=== PATIENT | female | born 1980 | race Caucasian/White ===

== ENCOUNTER 2016-10-17 20:11 | Observation (INO) | payer SELFPAY ==
[2016-10-17 20:35] VITALS: BMI 24.3
[2016-10-17] MEDS ORDERED: NS 1000 ML 0 ML ONE (21:04)
--- NOTE | 2016-10-17 21:05 | DR.GENAD ---
HPI - PCP Primary Care Physician: nfd - Complaint/Symptoms Chief Complaint Doctors Comments: Patient states she has been having a fever with stomach and back pain for the past 12 hours. Family states patient passed out at home while she was getting out the truck and walking to the door she fell backwards on the floor and had episode of stiffening of her body with hands clinched and shaking all over for a few seconds without urine or fecal incontinencel Family members states patient asked what happened afterwards and they went to sleep. family states patient temp was 105.2 at home at the time of the seizure. SHe is complaining of a headache and being dizzy but denies chest pain, nasuea or vomiting. She is complaining of occipital pain. She deies a history or seizures. Chief Complaint:: fever of 105.5 today abdominal pain all quadrants, and back pain patient stated " my fiance and daughter said i fell out and had a seizure when my fever was high, but i can't remember." Self Treatment fo Chief Complaint: 2 ibuprofen about an hour ago - Nurses notes reviewed Nurses Notes Review: Yes - Source History Provided: Patient - Mode of Arrival Mode of Arrival: Ambulatory - Timing Onset of Chief Complaint: 10/16/16 Came on: Suddenly - Duration Duration: Intermittent How lon Duration: Hours - Location Location: occipital headache - Severity Severity: Moderate - Modifying Factors Worsens:: nothing Improves:: nothing PMH - PMH Past Medical History: No Past Surgical History: No Surgical History: [employer] Surgery - Family History History of Family Medical Conditions: Yes Family Medical History: Diabetes Mellitus, Cancer, [place], Hypertension Family Medical History Comment: cva, seizures - Social History Does patient currently use any type of tobacco product: Yes Have you used tobacco products in the last 12 months: Yes Type of Tobacco Use: Cigarettes How many years tobacco product used: 21 Does any household member use tobacco: Yes Alcohol Use: None Do you use any recreational Drugs:: No Lives With: Family, Significant Other - infectious screening In the last 2 months have you had wt loss of >10#?: NO Have you had fever, night sweats or hemotysis?: No Have you traveled outside the country in the last 6 months?: No Isolation: Standard ROS - Review of Systems Constitutional: No Symptoms Reported, Fever, Weakness. negative: See HPI, Chills, Diaphoresis, Malaise, Irritable, Fatigue, Loss of Appetite, Other Eyes: No Symptoms Reported ENTM: No Symptoms Reported, Nose Discharge, Nose Congestion. negative: See HPI , Ear Pain, Ear Discharge, Pulling on Ears, Hearing Loss, Nose Pain, Epistaxis, Mouth Pain, Mouth Swelling, Loose Teeth, Drooling, Throat Pain, Throat Swelling , Ear Foreign Body Respiratoy: No Symptoms Reported. negative: See HPI, Productive Cough, Non- Productive Cough, Moist Cough, Dry Cough, Hacking Cough, Barking Cough, Brassy Cough, Orthopnea, Short of Breath, Stridor, Wheezing, Hemoptysis, Other Cardiovascular: No Symptoms Reported. negative: See HPI, Chest Pain, Edema, Palpitations, Syncope, Cyanosis, Skin Mottling, Other Gastrointestinal/Abdominal: No Symptoms Reported, Abdominal Pain. negative: See HPI, Constipation, Diarrhea, Nausea, Vomiting, Food Intolerance, Other Genitourinary: No Symptoms Reported. negative: See HPI, Discharge, Dysuria, Frequency, Hematuria, Pain, Bleeding, Other Neurological: No Symptoms Reported, Headache, Weakness, Dizziness. negative: See HPI, Anxiety, Depressed, Emotional Problems, Numbness, Paresthesia, Pre- existing Deficit, Seizure, Tingling, Tremors, Problems Walking, Speech Problem, Other Musculoskeletal: No Symptoms Reported Integumentary: No Symptoms Reported Hematologic/Lymphatic: No Symptoms Reported. negative: See HPI, Anemia, Blood Clots, Easy Bleeding, Easy Bruising, Swollen Glands, Lymphadenopathy, Other Endocrine: No Symptoms Reported. negative: See HPI, Excessive Sweating, Flushing, Intolerance to Cold, Intolerance to Heat, Increased Hunger, Increased Thirst, Increased Urine, Unexplained Weight Gain, Unexplained Weight Loss, Failure to Thrive, Decreased Appetite, Other Psychiatric: No Symptoms Reported. negative: See HPI, Anxiety, Depression, Hallucinations, Excessive crying, Suicidal, Other PE - Vital Signs Vitals: Temperature 99.0 F Pulse Rate [Standing] 91 Pulse Rate [Sitting] 70 Pulse Rate [Lying] 69 Pulse Rate 75 Respiratory Rate 16 Blood Pressure [Standing] 114/58 Blood Pressure [Sitting] 113/57 Blood Pressure [Lying] 117/55 Blood Pressure 113/63 O2 Sat by Pulse Oximetry 98 - General Limitations: No Limitations General Appearance: Alert, In No Apparent Distress - Head Head Exam: Atraumatic, Normocephalic - Eyes Eye exam: Normal Appearance, PERRL, EOMI. negative: Scleral Icterus, Conjunctival Injection, Nystagmus, Miosis, Mydrasis, Periorbital Swelling, Periorbital Tenderness, Other - ENT ENT Exam: Normal Exam, Normal Oropharynx, Normal External Ear Exam, Mucous Membranes Moist, TM's Normal Bilaterally External Ear Exam: Normal External Inspection TM/Canal Exam: Bilateral Normal Nose Exam: Normal Nose Exam Mouth Exam: Normal Inspection Throat Exam: Normal Inspection. negative: Tonsillar Erythema, Tonsillomegaly, Tonsillar Exudate, R Peritonsillar Mass, L Peritonsillar Mass, Muffled Voice, Other - Neck Neck Exam: Normal Inspection, Full ROM, Trachea Midline. negative: Tenderness, Meningismus, Lymphadenopathy, Thyromegaly, Other - Chest Chest Inspection: Normal Inspection, Symmetric Chest Wall Rise - Respiratory Respiratory Exam: Normal Lung Sounds Bilat Respiratory Exam: Bilateral Clear to Auscultation - Cardiovascular Cardiovascular Exam: Regular Rate, Normal Rhythm, Normal Heart Sounds. negative : Bradycardia, Tachycardia, Irregular Rhythm, Systolic Murmur, Diastolic Murmur , Rubs, Gallop, Clicks, JVD, +S1, +S2, +S3, +S4, Other - Abdominal Exam Abdominal Exam: Normal Inspection, Normal Bowel Sounds, Soft, Tenderness (RUQ, RLQ, epigastric and suprpubic pain) Abdominal Tenderness: RUQ, RLQ, Epigastrium, Suprapubic - Extremities Extremities Exam: Normal Inspection, Full ROM, Normal Capillary Refill. negative: Tenderness, Edema, Joint Swelling, Calf Tenderness, Other - Back Back Exam: Normal Inspection, Full ROM - Neurologic Neurological Exam: Alert, Oriented X3, CN II-XII Intact, Normal Gait - Psychiatric Psychiatric Exam: Normal Affect, Normal Mood. negative: Depressed, Agitated, Anxious, Flat Affect, Manic, Homicidal Ideation, Suicidal Ideation, Other - Skin Skin Exam: Warm, Dry, Intact, Normal Color Course - Reevaluation 1st: Improved - Consultation Called: 01:10 Call Returned: 01:10 (Dr. Shearer to admit) - Education/Counseling Education/Counseling: Patient, Family Educated On: Treatment, Diagnosis, Prognosis, Needs for Follow Up ROR - Labs Reviewed Laboratory Results Reviewed?: Yes (all labs and x-ray results reviewed and discussed with patient.) Result Diagrams: 10/17/16 21:39 10/17/16 21:39 Laboratory: WBC 16.9 X10^3/uL (3.6-10.0) H 10/17/16 21:39 RBC 4.67 X10^6/uL (3.5-5.4) 10/17/16 21:39 Hgb 11.2 g/dL (12.0-16.0) L 10/17/16 21:39 Hct 34.7 % (36.0-47.0) L 10/17/16 21:39 MCV 74.3 fL (80.0-100.0) L 10/17/16 21:39 MCH 24.0 pg (27.0-34.0) L 10/17/16 21:39 MCHC 32.3 g/dL (33.0-35.0) L 10/17/16 21:39 RDW 17.3 % (11.6-16.5) H 10/17/16 21:39 Plt Count 257 X10^3/uL (150.0-450.0) 10/17/16 21:39 Plt Count Comment Adequate (ADEQUATE) 10/17/16 21:39 MPV 7.8 fL (7.4-11.0) 10/17/16 21:39 Neut % 85.2 % (42.0-75.0) H 10/17/16 21:39 Lymph % 8.2 % (21.0-51.0) L 10/17/16 21:39 [place] % 6.5 % (0.0-13.0) 10/17/16 21:39 Eos % 0.0 % (0.9-2.9) L 10/17/16 21:39 Baso % 0.1 % (0.2-1.0) L 10/17/16 21:39 Neut # 14.4 x10^3/uL (2.2-4.8) H 10/17/16 21:39 Lymph # 1.4 X10^3/uL (1.3-2.9) 10/17/16 21:39 [place] # 1.1 x10^3/uL (0.3-0.8) H 10/17/16 21:39 Eos # 0.0 x10^3/uL (0.0-0.2) 10/17/16 21:39 Baso # 0.0 X10^3/uL (0.0-0.1) 10/17/16 21:39 Absolute Nucleated RBC 0.0 /100WBC 10/17/16 21:39 Plt Morphology Comment Normal (NORMAL) 10/17/16 21:39 RBC Morphology Abnormal (NORMAL) A 10/17/16 21:39 Hypochromasia Slight A 10/17/16 21:39 Microcytosis Slight A 10/17/16 21:39 INR Target Range - 10/17/16 21:39 INR 1.10 (0.8-1.3) 10/17/16 21:39 PTT 30.8 SECONDS (22.9-36.5) 10/17/16 21:39 PTT Comment - 10/17/16 21:39 D-Dimer < 100 ng/mL (0-400) 10/17/16 21:39 Sodium 139 mmol/L (136-145) 10/17/16 21:39 Corrected Sodium TNP 10/17/16 21:39 Potassium 3.7 mmol/L (3.5-5.1) 10/17/16 21:39 Chloride 103 mmol/L (98-107) 10/17/16 21:39 Carbon Dioxide 29.2 mmol/L (21-32) 10/17/16 21:39 BUN 9 mg/dL (7-18) 10/17/16 21:39 Creatinine 0.84 mg/dL (0.55-1.02) 10/17/16 21:39 Est GFR (MDRD) Af Amer > 60 (>60) 10/17/16 21:39 Est GFR (MDRD) Non-Af > 60 (>60) 10/17/16 21:39 Glucose 88 mg/dL (65-99) 10/17/16 21:39 Calcium 8.2 mg/dL (8.5-10.1) L 10/17/16 21:39 Corrected Calcium TNP 10/17/16 21:39 Magnesium 1.9 mg/dL (1.7-2.9) 10/17/16 21:39 Total Bilirubin 0.80 mg/dL (0.2-1.0) 10/17/16 21:39 AST 35 Units/L (15-37) 10/17/16 21:39 ALT 46 Units/L (12-78) 10/17/16 21:39 Alkaline Phosphatase 62 Units/L (46-116) 10/17/16 21:39 Creatine Kinase 144 Units/L (26-192) 10/17/16 21:39 CK-MB (CK-2) < 1.0 ng/mL (0-4.0) 10/17/16 21:39 CK/CKMB % Calc 0.7 % (<4) 10/17/16 21:39 Troponin I < 0.02 ng/mL (0-1.5) 10/17/16 21:39 Total Protein 7.8 g/dL (6.4-8.2) 10/17/16 21:39 Albumin 3.6 g/dL (3.4-5.0) 10/17/16 21:39 Globulin 4.2 g/dL (2.5-4.5) 10/17/16 21:39 Albumin/Globulin Ratio 0.9 Ratio (1.1-2.1) L 10/17/16 21:39 Amylase 39 Units/L (25-115) 10/17/16 21:39 Lipase 95 Units/L (73-393) 10/17/16 21:39 Specimen Type Clean catch urine 10/17/16 22:42 Urine Color Yellow (YELLOW) 10/17/16 22:42 Urine Appearance Hazy (CLEAR) 10/17/16 22:42 Urine pH 6.0 (5.0 - 8.0) 10/17/16 22:42 Ur Specific [place] 1.010 (1.000-1.030) 10/17/16 22:42 Urine Protein 2+ (NEGATIVE) 10/17/16 22:42 Urine Glucose (UA) Negative (NEGATIVE) 10/17/16 22:42 Urine Ketones Negative (NEGATIVE) 10/17/16 22:42 Urine Occult Blood 1+ (NEGATIVE) 10/17/16 22:42 Urine Nitrite Negative (NEGATIVE) 10/17/16 22:42 Urine Bilirubin Negative (NEGATIVE) 10/17/16 22:42 Urine Urobilinogen Normal (NORMAL) 10/17/16 22:42 Ur Leukocyte Esterase 2+ (NEGATIVE) 10/17/16 22:42 Urine RBC 1-4 /HPF (NEGATIVE) 10/17/16 22:42 Urine WBC 20-30 /HPF (NEGATIVE) 10/17/16 22:42 Ur Squamous Epith Cells Moderate /HPF (NEGATIVE) 10/17/16 22:42 Urine Bacteria Trace /HPF (NEGATIVE) 10/17/16 22:42 Ur Culture Indicated? Yes/culture set up 10/17/16 22:42 Urine Opiates Screen Negative (NEG=<300) 10/17/16 22:42 Urine Methadone Screen Negative (NEG=<300) 10/17/16 22:42 Ur Barbiturates Screen Negative (NEG=<200) 10/17/16 22:42 Ur Phencyclidine Scrn Negative (NEG=<25) 10/17/16 22:42 Ur Amphetamines Screen Negative (NEG=<1000) 10/17/16 22:42 U Benzodiazepines Scrn Negative (NEG=<200) 10/17/16 22:42 Urine Cocaine Screen Negative (NEG=<300) 10/17/16 22:42 U Marijuana (THC) Screen Negative (NEG=<50) 10/17/16 22:42 - XRAY XRAY Interpreted by: Radiologist (CT abdomen and pelvis: No acut einflammatory process in abdomen or pelvis) XRAY Findings: CT head: No acute intracranial process is identified. - Diagnosis Discharge Problem: Syncope and collapse, Urinary tract infection, Fever Altered mental status Qualifiers: Altered mental status type: transient alteration of awareness Qualified Code(s) : R40.4 - Transient alteration of awareness - Discharge Plan Disposition: ADMITTED INPATIENT Condition: Stable - Follow ups/Referrals Follow ups/Referrals: NFD,None [Primary Care Provider] - 3 days - Instructions
[2016-10-17] MEDS ORDERED: TORADOL 30 MG VIAL ONE (21:40)
[2016-10-17] MEDS ORDERED: ZOFRAN INJ 4 MG VIAL ONE (21:40)
--- NOTE | 2016-10-17 21:43 | CT ---
CT brain without contrast Indication: New onset seizure, occipital headache Comparison: None available Technique: Multiple axial images of the brain were obtained from the skull base to the vertex without administr ation of IV contrast. Coronal and sagittal images were also provided. Radiation dose reduction techniques were performed utilizing adjustment for MA/kVP based on patient body size. Findings: No acute intraparenchymal hemorrhage or mass can be identified. No extra-axial fluid collections ar e seen. No alteration in the attenuation of the brain parenchyma can be identified to suggest acute or subacute ischemic change. The ventricular system is symmetric and nondilated. The extracranial structures are grossly unremarkable. IMPRESSION: 1. No acute intracranial process is identified. Reported By:
--- NOTE | 2016-10-17 21:47 | CT ---
CT abdomen and pelvis without contrast Indication: Epigastric and suprapubic pain Comparison: 07/31/2016 Technique: Multiple axial images of the abdomen and pelvis were obtained from the lung bases to the pubic symph ysis without the administration of IV contrast. Coronal and sagittal images were also provided. Radiation dose reduction techniques were performed utilizing adjustment for MA/kVP based on patient body size. Findings: The visualized portions of the lung bases are unremarkable. There is pectus excavatum deformity of t he chest wall. The bony structures are grossly intact. Given the limitations of lack of IV contrast administration the liver, gallbladder, spleen, pancreas , and adrenal glands are unremarkable in their CT appearance. No evidence of stone within either kidney or ureter. No hydronephrosis is identified. No bowel wall thickening or bowel dilatation is present. The colon and rectum are unremarkable. Th e urinary bladder is grossly unremarkable. No discrete pelvic or adnexal mass identified. The append ix is normal. No mesenteric lymphadenopathy or stranding can be observed. No free fluid or free air is seen withi n the abdomen. IMPRESSION: 1. No acute inflammatory process within the abdomen or pelvis given the limitations of lack of IV o r oral contrast administration. Reported By:
[2016-10-17 21:57] LABS: BASOPHILS % (AUTO) 0.1 % (0.2-1.0); HEMATOCRIT 34.7 % (36.0-47.0); HEMOGLOBIN 11.2 g/dL (12.0-16.0); LYMPHOCYTES # (AUTO) 1.4 X10^3/uL (1.3-2.9); LYMPHOCYTES % (AUTO) 8.2 % (21.0-51.0); MEAN CORPUSCULAR HGB CONC 32.3 g/dL (33.0-35.0); MEAN CORPUSCULAR VOLUME 74.3 fL (80.0-100.0); MEAN PLATELET VOLUME 7.8 fL (7.4-11.0); MONOCYTES # (AUTO) 1.1 x10^3/uL (0.3-0.8); MONOCYTES % (AUTO) 6.5 % (0.0-13.0); NEUTROPHILS # (AUTO) 14.4 x10^3/uL (2.2-4.8); NEUTROPHILS % (AUTO) 85.2 % (42.0-75.0); PLATELET COUNT 257 X10^3/uL (150.0-450.0); RED BLOOD COUNT 4.67 X10^6/uL (3.5-5.4); RED CELL DISTRIBUTION WIDTH 17.3 % (11.6-16.5); WHITE BLOOD COUNT 16.9 X10^3/uL (3.6-10.0)
[2016-10-17 22:10] LABS: BLOOD UREA NITROGEN 9 mg/dL (7-18); CALCIUM 8.2 mg/dL (8.5-10.1); CARBON DIOXIDE 29.2 mmol/L (21-32); CHLORIDE 103 mmol/L (98-107); CREATININE 0.84 mg/dL (0.55-1.02); GLUCOSE 88 mg/dL (65-99); SODIUM 139 mmol/L (136-145); TROPONIN I < 0.02 ng/mL (0-1.5); eGFR BLACK RACES > 60 (>60); eGFR NON BLACK RACES > 60 (>60)
[2016-10-17 22:13] LABS: ALANINE AMINOTRANSFERASE 46 Units/L (12-78); ALBUMIN 3.6 g/dL (3.4-5.0); ALKALINE PHOSPHATASE 62 Units/L (46-116); AMYLASE 39 Units/L (25-115); ASPARTATE AMINO TRANSFERASE 35 Units/L (15-37); CKMB % 0.7 % (<4); CREATINE KINASE 144 Units/L (26-192); CREATINE KINASE MB < 1.0 ng/mL (0-4.0); LIPASE 95 Units/L (73-393); MAGNESIUM 1.9 mg/dL (1.7-2.9); TOTAL PROTEIN 7.8 g/dL (6.4-8.2)
[2016-10-17 22:14] LABS: HYPOCHROMASIA SLIGHT; MICROCYTOSIS SLIGHT; PLATELET MORPHOLOGY COMMENT NORMAL (NORMAL)
[2016-10-17 22:15] LABS: D DIMER < 100 ng/mL (0-400)
[2016-10-17 23:15] LABS: BILIRUBIN,URINE NEGATIVE (NEGATIVE); BLOOD/HEMOGLOBIN,URINE 1+ (NEGATIVE); GLUCOSE, URINE NEGATIVE (NEGATIVE); KETONES,URINE NEGATIVE (NEGATIVE); LEUKOCYTE ESTERASE ,URINE 2+ (NEGATIVE); NITRITES,URINE NEGATIVE (NEGATIVE); PROTEIN,URINE 2+ (NEGATIVE); UROBILINOGEN,URINE NORMAL (NORMAL)
[2016-10-17 23:32] LABS: APPEARANCE,URINE HAZY (CLEAR); COLOR,URINE YELLOW (YELLOW)
[2016-10-17 23:33] LABS: BACTERIA,URINE TRACE /HPF (NEGATIVE); SQUAMOUS EPITHELIAL CELL,UR MODERATE /HPF (NEGATIVE)
[2016-10-17] MEDS ORDERED: ROCEPHIN VIAL 1 GM 1 GM in NS 50 ML IV + SPIKE MINIBAG* 50 ML IV SCH (23:45)
[2016-10-17] MEDS ORDERED: NS 50 ML IV + SPIKE MINIBAG* 50 ML IV ONE (23:56)
[2016-10-17] MEDS ORDERED: ROCEPHIN VIAL 1 GM ONE (23:57)
[2016-10-18] MEDS ORDERED: NS 100 ML IV 100 ML IV ONE (00:04)
[2016-10-18] MEDS: NS 100 ML IV 100 ML IV SCH ×2 (00:08→06:32)
[2016-10-18] MEDS ORDERED: TORADOL 30 MG VIAL IVP PRN (01:17)
[2016-10-18] MEDS ORDERED: ZOFRAN INJ 4 MG VIAL IVP PRN (01:18)
[2016-10-18] MEDS: NS 1000 ML 1,000 ML IV SCH ×3 (01:30→15:34)
[2016-10-18 02:25] LABS: CKMB % 0.8 % (<4); CREATINE KINASE 121 Units/L (26-192); CREATINE KINASE MB < 1.0 ng/mL (0-4.0); TROPONIN I < 0.02 ng/mL (0-1.5)
--- NOTE | 2016-10-18 02:58 | RAD ---
AP Chest Indication: Chest pain Comparison: none available Findings: The trachea is midline. The cardiac silhouette is unremarkable. The lungs are clear without focal infiltrate or effusion. The bony thorax is unremarkable. IMPRESSION: 1. No acute cardiopulmonary abnormality. Reported By:
[2016-10-18 07:59] LABS: CREATINE KINASE 99 Units/L (26-192); CREATINE KINASE MB < 1.0 ng/mL (0-4.0); TROPONIN I < 0.02 ng/mL (0-1.5)
[2016-10-18] MEDS ORDERED: PROTONIX INJ 40 MG VIAL IVP SCH (09:00)
[2016-10-18] MEDS ORDERED: ROCEPHIN VIAL 1 GM 1 GM in NS 50 ML IV + SPIKE MINIBAG* 50 ML IV SCH (12:00)
[2016-10-18 13:41] LABS: BLOOD UREA NITROGEN 9 mg/dL (7-18); CALCIUM 7.9 mg/dL (8.5-10.1); CARBON DIOXIDE 26.8 mmol/L (21-32); CHLORIDE 104 mmol/L (98-107); CREATININE 0.79 mg/dL (0.55-1.02); GLUCOSE 104 mg/dL (65-99); SODIUM 139 mmol/L (136-145); eGFR BLACK RACES > 60 (>60); eGFR NON BLACK RACES > 60 (>60)
[2016-10-18 13:43] LABS: BASOPHILS # (AUTO) 0.1 X10^3/uL (0.0-0.1); BASOPHILS % (AUTO) 0.4 % (0.2-1.0); EOSINOPHILS % (AUTO) 0.1 % (0.9-2.9); HEMATOCRIT 33.5 % (36.0-47.0); HEMOGLOBIN 10.5 g/dL (12.0-16.0); LYMPHOCYTES # (AUTO) 1.2 X10^3/uL (1.3-2.9); LYMPHOCYTES % (AUTO) 7.2 % (21.0-51.0); MEAN CORPUSCULAR HEMOGLOBIN 23.7 pg (27.0-34.0); MEAN CORPUSCULAR HGB CONC 31.3 g/dL (33.0-35.0); MEAN CORPUSCULAR VOLUME 75.6 fL (80.0-100.0); MEAN PLATELET VOLUME 7.5 fL (7.4-11.0); MONOCYTES # (AUTO) 1.4 x10^3/uL (0.3-0.8); NEUTROPHILS # (AUTO) 14.5 x10^3/uL (2.2-4.8); NEUTROPHILS % (AUTO) 84.3 % (42.0-75.0); PLATELET COUNT 224 X10^3/uL (150.0-450.0); RED BLOOD COUNT 4.43 X10^6/uL (3.5-5.4); RED CELL DISTRIBUTION WIDTH 16.9 % (11.6-16.5); WHITE BLOOD COUNT 17.1 X10^3/uL (3.6-10.0)
[2016-10-18 14:20] LABS: CREATINE KINASE 102 Units/L (26-192); CREATINE KINASE MB < 1.0 ng/mL (0-4.0); TROPONIN I < 0.02 ng/mL (0-1.5)
[2016-10-18 14:38] LABS: MICROCYTOSIS 1+; PLATELET MORPHOLOGY COMMENT NORMAL (NORMAL)
[2016-10-18 16:46] VITALS: BP 118/56
== END 2016-10-18 16:50 | disposition home or self-care (01) ==
LOC: ER 20:11 → MED/SURG 10-18 01:12
PROVIDERS: ADMIT Internal Medicine; ATTEND Internal Medicine
DX: N39.0 Urinary tract infection, site not specified (principal); R55 Syncope and collapse; R94.31 Abnormal electrocardiogram [ECG] [EKG]; R50.9 Fever, unspecified; R10.84 Generalized abdominal pain; M54.89 Other dorsalgia; R40.4 Transient alteration of awareness
CPT/HCPCS: 36415; 70450; 71010; 74176; 80048; 80053; 80307; 81001; 82150; 82550; 82553; 83690; 83735; 84484; 85025; 85378; 85610; 85730; 87086; 93005; 93010; 96365; 96367; 96374; 99284; A4216; A4222; C9113; G0378; G0434; J0696; J1885; J2405